=== PATIENT | male | born 1965 | race Caucasian/White ===

== ENCOUNTER 2021-10-30 09:27 | Outpatient (CLI) | payer OTHER, SELFPAY ==
[2021-10-30 10:51] LABS: Basophils Absolute Auto 0.03 K/uL (0.00-0.30); Basophils Percent Auto 0.6 % (0.0-3.0); Eosinophils Absolute Auto 0.19 K/uL (0.00-0.50); Eosinophils Percent Auto 3.8 % (0.0-7.0); Hematocrit 43.8 % (37.0-53.0); Hemoglobin* 15.5 gm/dL (13.5-17.5); Lymphocytes Absolute Auto 1.43 K/uL (0.90-2.90); Lymphocytes Percent Auto 28.8 % (20-44); Mean Corpuscular HGB Conc 35 gm/dL (32-36); Mean Corpuscular Hemoglobin 32 pg (26-34); Mean Corpuscular Volume 92 fL (80-100); Monocytes Absolute Auto 0.42 K/UL (0.00-0.90); Monocytes Percent Auto 8.5 % (0.0-11.0); Neutrophils Absolute Auto 2.89 K/uL (1.7-7.0); Neutrophils Percent Auto 58.3 % (42.0-72.0); Platelet Count* 200 K/uL (140-440); Red Blood Count 4.78 m/uL (4.30-5.90); White Blood Count* 4.96 K/uL (4.50-11.00)
[2021-10-30 11:00] LABS: Slide Review Reflex No
[2021-10-30 13:47] LABS: Chloride* 104 mmol/L (96-114); Potassium* 4.6 mmol/L (3.6-5.1); Sodium* 136 mmol/L (135-149)
[2021-10-30 13:50] LABS: Carbon Dioxide* 24 mmol/L (20-32); Estimated Glomerular Filt Rate 89 ml/min
[2021-10-30 13:51] LABS: Blood Urea Nitrogen* 20 mg/dL (7-30); Glucose* 94 mg/dL (60-115)
== END 2021-10-30 09:28 | disposition home or self-care (01) ==
LOC: FRMREF 10:32
PROVIDERS: PCP Family Medicine; Visit Provider Family Medicine
DX: Z01.812 Encounter for preprocedural laboratory examination (principal)
CPT/HCPCS: 80048; 85025

== ENCOUNTER 2022-04-18 08:13 | Outpatient (CLI) | payer OTHER, SELFPAY ==
[2022-04-18 13:57] LABS: Albumin* 4.3 g/dL (3.3-5.0); Chloride* 105 mmol/L (96-114)
[2022-04-18 13:58] LABS: Potassium* 4.5 mmol/L (3.6-5.1); Sodium* 139 mmol/L (135-149)
[2022-04-18 14:00] LABS: Aspartate Amino Transferase* 26 U/L (12-35); Bilirubin Total* 1.2 mg/dL (0.1-1.5); Blood Urea Nitrogen* 20 mg/dL (7-30); Carbon Dioxide* 29 mmol/L (20-32); Cholesterol* 244 mg/dL (90-199); Estimated Glomerular Filt Rate 89 ml/min; Glucose* 97 mg/dL (60-115); Total Protein* 7.1 g/dL (6.0-8.3)
[2022-04-18 14:01] LABS: Alanine Aminotransferase* 23 U/L (4-50); Alkaline Phosphatase* 44 U/L (40-150); Calcium* 9.1 mg/dL (8.4-10.6); HDL Cholesterol* 56 mg/dL (>=40); LDL Cholesterol Calculated 148 mg/dL (<100); Triglycerides* 202 mg/dL (40-149)
== END 2022-04-18 08:14 | disposition home or self-care (01) ==
PROVIDERS: PCP Family Medicine; Visit Provider Family Medicine
DX: Z00.00 Encounter for general adult medical examination without abnormal findings (principal); E78.5 Hyperlipidemia, unspecified; G25.0 Essential tremor; Z13.1 Encounter for screening for diabetes mellitus
CPT/HCPCS: 80053; 80061

== ENCOUNTER 2023-09-18 09:15 | Outpatient (CLI) | payer OTHER, SELFPAY | END 2023-09-18 09:16 | disposition home or self-care (01) | LOC: NFLDREF 09-26 14:00 | PROVIDERS: PCP Physician Assistant Medical; Referring Provider Physician Assistant Medical; Visit Provider Physician Assistant Medical | DX: E78.5 Hyperlipidemia, unspecified (principal); N52.8 Other male erectile dysfunction; G25.0 Essential tremor; Z12.5 Encounter for screening for malignant neoplasm of prostate; Z13.228 Encounter for screening for other metabolic disorders; Z13.29 Encounter for screening for other suspected endocrine disorder | CPT/HCPCS: 80053; 80061; 84443; G0103 ==

== ENCOUNTER 2024-12-21 08:08 | Outpatient (CLI) | payer OTHER, SELFPAY | END 2024-12-21 08:09 | disposition home or self-care (01) | LOC: NFLDREF 12-24 07:52 | PROVIDERS: PCP Physician Assistant Medical; Referring Provider Physician Assistant Medical; Visit Provider Physician Assistant Medical | DX: Z01.818 Encounter for other preprocedural examination (principal); E78.5 Hyperlipidemia, unspecified; Z12.5 Encounter for screening for malignant neoplasm of prostate | CPT/HCPCS: 80053; 80061; 84443; G0103 ==